=== PATIENT | female | born 2000 | race Caucasian/White ===

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

== ENCOUNTER 2022-03-09 07:46 | Day surgery (SDC) | payer OTHER ==
[~2022-03-09] VITALS: Ht 165.1 cm; Wt 118.9 kg
[~2022-03-09 07:46] MED LIST: GABA300 PO; TRAZ50 PO; [UNRECOGNIZED DRUG - OTHER]
[2022-03-09] MEDS ORDERED: OMEP20ER (08:01)
--- NOTE | 2022-03-09 09:41 | NUR ---
03/09/22 0942 ALEXIS BRO FENTANYL 12.5MCG GIVEN AT THIS TIME. MOM AT BEDSIDE. PT EAGER TO GO HOME.
== END 2022-03-09 10:15 | disposition home or self-care (01) ==
LOC: ORSCSDS 07:46
PROVIDERS: Otolaryngology
PROC: 0CBPXZZ Excision of Tonsils, External Approach (ICD-10-PCS; principal; 2022-03-09 08:45)
DX: J35.01 Chronic tonsillitis (principal); J35.1 Hypertrophy of tonsils; J35.8 Other chronic diseases of tonsils and adenoids; J45.909 Unspecified asthma, uncomplicated; K21.9 Gastro-esophageal reflux disease without esophagitis; Z79.899 Other long term (current) drug therapy
CPT/HCPCS: 88304; J0330; J2250; J2704; J3010; J7120

== ENCOUNTER 2022-03-15 14:25 | Inpatient (IN) | payer OTHER ==
[~2022-03-15] VITALS: Ht 167.6 cm; Wt 117.9 kg
[~2022-03-15 14:25] MED LIST changes: +OMEP20ER
--- NOTE | 2022-03-15 15:59 | NUR ---
03/15/22 1559 Breann Granado NO PREOP ANTIBIOTICS ORDERED
--- NOTE | 2022-03-15 17:28 | NUR ---
PATIENT DECREASINGLY WITHDRAWN AFTER MOTHER INTO SEE HER. CALMS. ABLE TO TOLERATE SIPS OF WATER. MEDICATED WITH PERCOCET FOR PAIN. PATIENT REPORTS MILD NAUSEA. LAST SURGERY HAD EMISIS IN THE CAR ON WAY HOME. MEDICATED WITH ZOFRAN. PATIENT GOING HOME WITH MOM. Discharge instructions reviewed with patient. Patient verbalizes understanding. Copy given to patient to take home. Discharged via wheelchair to private car for ride home WITH MOM
== END 2022-03-15 17:28 | disposition home or self-care (01) | DRG 909 ==
LOC: ER 14:25 → SURS 15:56
PROVIDERS: ADMIT Otolaryngology
PROC: 0W33XZZ Control Bleeding in Oral Cavity and Throat, External Approach (ICD-10-PCS; principal; 2022-03-15 15:00)
DX: J95.830 Postprocedural hemorrhage of a respiratory system organ or structure following a respiratory system procedure (principal); Z88.0 Allergy status to penicillin
CPT/HCPCS: 81025; 99284; A9270; J0330; J2250; J2405; J2704; J3010

== ENCOUNTER → 2023-04-06 | Outpatient (CLI) | payer OTHER ==
[2023-04-08 00:09] LABS: CHLAMYDIA TRACHOMATIS, NAA Negative (Negative)
== END | disposition home or self-care (01) ==
LOC: LAB SHORT 16:28 → LAB 16:28
PROVIDERS: Obstetrics & Gynecology
DX: Z01.419 Encounter for gynecological examination (general) (routine) without abnormal findings (principal); Z11.3 Encounter for screening for infections with a predominantly sexual mode of transmission
CPT/HCPCS: 87491; 87591; G0145

== ENCOUNTER 2024-09-16 19:56 | Emergency (ER) | payer OTHER ==
[~2024-09-16] VITALS: Ht 167.6 cm; Wt 132.9 kg
[2024-09-16 21:33] VITALS: BP 152/85
[2024-09-16] MEDS ORDERED: Acetaminophen 500 MG Tab PO ONE (22:50)
[2024-09-16] MEDS ORDERED: Ketorolac Tromethamine 15mg Vial IM ONE (22:50)
[2024-09-16] MEDS ORDERED: Lidocaine 4% 1 Patch TOP ONE (22:50)
[2024-09-16] MEDS ORDERED: ACET500 PO (23:20)
[2024-09-16] MEDS ORDERED: LIDO700A20 TOP (23:20)
[2024-09-16] MEDS ORDERED: IBUP600 PO (23:20)
== END 2024-09-16 23:57 | disposition home or self-care (01) ==
LOC: ER 19:56
DX: M54.40 Lumbago with sciatica, unspecified side (principal); Z79.899 Other long term (current) drug therapy; Z88.0 Allergy status to penicillin
CPT/HCPCS: 99283; A9270; J1885

== ENCOUNTER → 2024-11-06 | Outpatient (CLI) | payer OTHER ==
[~2024-11-06] MED LIST changes: +ACET500 PO; +IBUP600 PO; +LIDO700A20 TOP
[2024-11-06 18:25] LABS: BASOPHILS ABSOLUTE AUTO 0.04 K/mm3 (0.00-0.23); BASOPHILS PERCENT AUTO 1 % (0-2); EOSINOPHILS ABSOLUTE AUTO 0.12 K/mm3 (0.00-0.68); EOSINOPHILS PERCENT AUTO 2 % (0-6); Hematocrit 42.3 % (33.0-51.0); IMMATURE GRAN ABSOLUTE AUTO 0.01 K/mm3 (0.00-0.10); IMMATURE GRAN PERCENT AUTO 0 % (0-1); LYMPHOCYTES ABSOLUTE AUTO 2.48 K/mm3 (0.84-5.20); LYMPHOCYTES PERCENT AUTO 33 % (21-46); MONOCYTES ABSOLUTE AUTO 0.54 K/mm3 (0.16-1.47); MONOCYTES PERCENT AUTO 7 % (4-13); Mean Corpuscular HGB Conc 33.1 g/dL (31.5-36.5); Mean Corpuscular Volume 85 fL (80-100); Mean Platelet Volume 9.5 fL (9.1-12.4); NEUTROPHILS PERCENT AUTO 58 % (41-73); Platelet Count 249 K/mm3 (150-400); RDW Coefficient Variation 13.8 % (11.7-14.2); RDW Standard Deviation 42.1 fL (35.1-46.3); White Blood Cell Count 7.49 K/mm3 (4.00-11.30)
== END | disposition home or self-care (01) ==
LOC: LAB SHORT 18:18 → LAB 18:18
PROVIDERS: Physician Assistant
DX: R10.2 Pelvic and perineal pain (principal)
CPT/HCPCS: 85025

== ENCOUNTER → 2024-12-19 | Outpatient (CLI) | payer OTHER ==
[2024-12-19 08:49] LABS: BASOPHILS ABSOLUTE AUTO 0.02 K/mm3 (0.00-0.23); BASOPHILS PERCENT AUTO 0 % (0-2); EOSINOPHILS ABSOLUTE AUTO 0.01 K/mm3 (0.00-0.68); EOSINOPHILS PERCENT AUTO 0 % (0-6); Hematocrit 43.2 % (33.0-51.0); IMMATURE GRAN ABSOLUTE AUTO 0.03 K/mm3 (0.00-0.10); IMMATURE GRAN PERCENT AUTO 0 % (0-1); LYMPHOCYTES ABSOLUTE AUTO 0.44 K/mm3 (0.84-5.20); LYMPHOCYTES PERCENT AUTO 4 % (21-46); MONOCYTES ABSOLUTE AUTO 0.34 K/mm3 (0.16-1.47); MONOCYTES PERCENT AUTO 3 % (4-13); Mean Corpuscular HGB Conc 32.4 g/dL (31.5-36.5); Mean Corpuscular Volume 86 fL (80-100); Mean Platelet Volume 10.2 fL (9.1-12.4); NEUTROPHILS ABSOLUTE AUTO 9.61 K/mm3 (1.96-9.15); NEUTROPHILS PERCENT AUTO 92 % (41-73); Platelet Count 219 K/mm3 (150-400); RDW Coefficient Variation 13.3 % (11.7-14.2); RDW Standard Deviation 41.3 fL (35.1-46.3); White Blood Cell Count 10.45 K/mm3 (4.00-11.30)
[2024-12-19 09:38] LABS: Albumin, Blood 3.9 g/dL (3.4-5.0); Albumin/Globulin Ratio 1.1 (0.8-1.8); Bilirubin, Total 0.6 mg/dL (0.1-1.0); Bun/Creatinine Ratio 18.5 (12.0-20.0); Calcium, Blood 8.8 mg/dL (8.5-10.1); Creatinine, Blood 0.6 mg/dL (0.40-1.00); Globulin, Blood 3.6 g/dL (2.2-4.0); Potassium, Blood 3.7 mmol/L (3.5-5.5); Total Protein, Blood 7.5 g/dL (6.4-8.2)
== END | disposition home or self-care (01) ==
LOC: LAB SHORT 08:33 → LAB 08:33
PROVIDERS: Family Medicine
DX: R11.10 Vomiting, unspecified (principal)
CPT/HCPCS: 80053; 85025

== ENCOUNTER 2025-06-14 10:48 | Day surgery (SDC) | payer OTHER ==
[~2025-06-14] VITALS: Ht 165.1 cm; Wt 135.9 kg
[2025-06-14] VITALS (12 sets, daily range): BP systolic 120–146; BP diastolic 70–92
[~2025-06-14 10:48] MED LIST changes: +Ferosul325 MG PO; +Glycopyrrolate 0.2 MG/ML 5ML VIAL ONE; +IBUP800 PO; +METFORMIN HCL750 MG PO; +OXAYDO5 M2 PO; +PROG100 PO; +PROM25 PO
[2025-06-14] MEDS ORDERED: FentaNYL Citrate 50 MCG/ML 2 ML Injection ONE (11:05)
[2025-06-14] MEDS ORDERED: Midazolam HCl 1MG / ML 2ML Vial ONE (11:05)
[2025-06-14] MEDS ORDERED: Ondansetron HCl 2 MG / ML 2ML Vial ONE (12:23)
[2025-06-14] MEDS ORDERED: Dexamethasone Sod Phos 10 MG/ML 1ML VIAL ONE (12:23)
[2025-06-14] MEDS ORDERED: Rocuronium Bromide 10 MG/ML 5ML Injection IV ONE (12:23)
[2025-06-14] MEDS ORDERED: Citric Acid/Sodium Citrate 30 ML BTL PO ONE (14:15)
[2025-06-14] MEDS ORDERED: Bupivacaine 0.5% HCl 5 MG/ML 30MLVIAL ONE (14:19)
[2025-06-14] MEDS ORDERED: Sugammadex Sodium 200 MG/2ML SDV (100 MG/ML) ONE (14:52)
[2025-06-14] MEDS ORDERED: HYDROmorphone HCl/Pf 1MG SYR ONE ×2 (15:17→16:18)
[2025-06-14] MEDS ORDERED: Albuterol 2.5 MG/3 ML VIAL INH PRN (15:50)
[2025-06-14] MEDS ORDERED: HYDROmorphone HCl/Pf 1MG SYR IV PRN ×2 (15:50)
[2025-06-14] MEDS ORDERED: HydrALAZINE HCl 20 MG / ML 1ML Vial IV PRN (15:50)
[2025-06-14] MEDS ORDERED: Ondansetron HCl 2 MG / ML 2ML Vial IV PRN (15:50)
[2025-06-14] MEDS ORDERED: Metoclopramide HCl 5MG / ML 2ML Vial IV PRN (15:50)
[2025-06-14] MEDS ORDERED: ePHEDrine Sulfate 50 MG/ML 1ML Injection IV PRN (15:55)
[2025-06-14] MEDS ORDERED: FentaNYL Citrate 50 MCG/ML 2 ML Injection IV PRN ×2 (15:55)
[2025-06-14] MEDS ORDERED: Ketorolac Tromethamine 30mg Vial ONE (16:03)
[2025-06-14] MEDS ORDERED: OxyCODONE 5 mg/Acetamin 325 mg TABLET PO PRN (16:20)
--- NOTE | 2025-06-14 18:01 | NUR ---
Discharge instructions reviewed with patient. Patient verbalizes understanding. Copy given to patient to take home. Fresh anna-pad provided. Patient vomited after attempting to get dressed. Zofran administered. Patient states pain is 4/10 & manageable, declines further pain medication. Patient states face is still moderately itchy, but declines medication. Patient requesting discharge home. Discharged via wheelchair to private car for ride home.
== END 2025-06-14 18:10 | disposition home or self-care (01) ==
LOC: ORSCMMR 10:48 → ORD 12:15 → ORSCMMR 18:10
PROVIDERS: Obstetrics & Gynecology
PROC: 0U5F4ZZ Destruction of Cul-de-sac, Percutaneous Endoscopic Approach (ICD-10-PCS; principal; 2025-06-14 14:30)
DX: N80.30 Endometriosis of pelvic peritoneum, unspecified (principal); N94.6 Dysmenorrhea, unspecified; R10.20 Pelvic and perineal pain unspecified side; J45.909 Unspecified asthma, uncomplicated; K21.9 Gastro-esophageal reflux disease without esophagitis; E11.9 Type 2 diabetes mellitus without complications; F41.9 Anxiety disorder, unspecified; E66.01 Morbid (severe) obesity due to excess calories; Z68.42 Body mass index [BMI] 45.0-49.9, adult; Z79.84 Long term (current) use of oral hypoglycemic drugs; Z79.899 Other long term (current) drug therapy
CPT/HCPCS: 88305; A9270; J1100; J1171; J1885; J2250; J2405; J2704; J2765; J3010; J7120